=== PATIENT | male | born 1950 | race Caucasian/White ===

== ENCOUNTER → 2021-03-30 | Outpatient (CLI) | payer OTHER ==
[~2021-03-30] MED LIST: ACTOS PLUS MET PO; ATEN50; CRUTCH USE; LISI10 PO; LISI5 PO; METF850 PO; OXYACE5T PO; PIOG30 PO; PRAV10 PO; SIMV10 PO; TAMS.4ER PO; TRULICITY0.75 MG/0. SC
[2021-03-31 18:32] LABS: Protein, Urine Random 10.2 mg/dL (0.0-11.9); Protein/Creat Ratio, Ur Random 0.1
== END | disposition home or self-care (01) ==
LOC: LAB SHORT 14:41 → LAB FUT 02-17 14:35
PROVIDERS: Internal Medicine Nephrology
DX: N18.31 Chronic kidney disease, stage 3a (principal)
CPT/HCPCS: 82570; 84156